=== PATIENT | female | born 1950 | race Caucasian/White ===

== ENCOUNTER → 2023-10-30 | Emergency (ER) | payer OTHER ==
[~2023-10-30] VITALS: Ht 162.6 cm; Wt 61.2 kg
[~2023-10-30] MED LIST: EZALLOR SPRINKL20 MG PO; GRALISE600 MG; PANTOPRAZOLE SO20 MG PO
== END | disposition left against medical advice (07) ==
LOC: ER 13:56
DX: Z53.21 Procedure and treatment not carried out due to patient leaving prior to being seen by health care provider (principal)